=== PATIENT | female | born 1965 | race Two or more races ===

== ENCOUNTER 2017-11-30 07:23 | Outpatient (CLI) | payer OTHER | END 2017-11-30 07:34 | disposition home or self-care (01) | LOC: LAB 07:23 | DX: N60.11 Diffuse cystic mastopathy of right breast (principal) ==

== ENCOUNTER 2017-11-30 07:55 | Outpatient (CLI) | payer OTHER | END 2017-11-30 08:07 | disposition home or self-care (01) | LOC: MAMO-SONO 07:55 | DX: N60.11 Diffuse cystic mastopathy of right breast (principal); N30.20 Other chronic cystitis without hematuria; Z12.31 Encounter for screening mammogram for malignant neoplasm of breast ==

== ENCOUNTER → 2021-02-09 08:00 | Outpatient (CLI) | payer OTHER | END | disposition home or self-care (01) | LOC: PPH VACUNA 08:00 | PROVIDERS: ATTEND Emergency Medicine Pediatric Emergency Medicine | DX: Z23 Encounter for immunization (principal) ==

== ENCOUNTER 2021-08-18 08:00 | Outpatient (CLI) | payer OTHER | END 2021-08-18 08:30 | disposition home or self-care (01) | LOC: PPH VACUNA 08:00 | PROVIDERS: ATTEND Emergency Medicine Pediatric Emergency Medicine | DX: Z23 Encounter for immunization (principal) ==

== ENCOUNTER → 2025-03-26 | Outpatient (CLI) | payer OTHER | END | disposition home or self-care (01) | LOC: MAMO-SONO 07:45 | DX: N64.2 Atrophy of breast (principal); Z00.8 Encounter for other general examination; Z68.31 Body mass index [BMI] 31.0-31.9, adult; I10 Essential (primary) hypertension; Z23 Encounter for immunization; Z12.31 Encounter for screening mammogram for malignant neoplasm of breast; E66.9 Obesity, unspecified ==